=== PATIENT | male | born 2000 | race Caucasian/White ===

== ENCOUNTER → 2022-08-17 | Outpatient (CLI) | payer SELFPAY | LOC: M OUTALCOH 08:16 | PROVIDERS: ATTEND Psychiatry & Neurology Psychiatry | DX: Z03.89 Encounter for observation for other suspected diseases and conditions ruled out (principal) ==

== ENCOUNTER 2024-12-16 20:18 | Emergency (ER) | payer SELFPAY ==
[~2024-12-16] VITALS: Ht 175.3 cm; Wt 73.2 kg
[2024-12-16 20:20] VITALS: BP 152/85; TEMP 97.6; O2SAT 98
== END 2024-12-16 22:02 | disposition left against medical advice (07) ==
LOC: M ED 20:18
DX: Z53.21 Procedure and treatment not carried out due to patient leaving prior to being seen by health care provider (principal)